=== PATIENT | male | born 1985 | race Caucasian/White ===

== ENCOUNTER → 2016-05-15 | Outpatient (CLI) | payer OTHER ==
--- NOTE | 2016-05-15 10:10 | REP ---
Chest x-ray: Two views. History: Cough. Comparison study September 30, 2007. Findings: The lungs are symmetrically aerated and clear. Heart is not enlarged. Pleural angles are sharp. Pulmonary vasculature is not increased. No significant bony abnormality is seen. Impression: No active disease. Unreviewed
== END ==
LOC: M LRY 09:43
PROVIDERS: ATTEND Nurse Practitioner Family
DX: R05 Cough (principal)

== ENCOUNTER → 2016-05-15 | Outpatient (REF) | payer OTHER | LOC: M SFHCLERA 09:28 | PROVIDERS: ATTEND Nurse Practitioner Family | DX: J02.9 Acute pharyngitis, unspecified (principal) ==

== ENCOUNTER → 2019-12-27 | Outpatient (CLI) | payer OTHER ==
--- NOTE | 2020-01-03 06:21 | SLEEPHOME ---
DATE: 12/27/2019 ORDERING PROVIDER: Sabrina Bush FINDINGS: Diagnostic home sleep testing was performed due to concern for obstructive sleep apnea syndrome. For testing, a nocturnal T3 respiratory monitoring device was used. Continuous record was made of pulse, oxygen saturation, air flow, chest abdominal strain, and body position. Nine hours and 59 minutes of data were reviewed. There were six hours and 27 minutes as time in bed. During interval of marked time in bed, there were 193 respiratory events identified of 10 seconds in duration or greater, for a respiratory event index of 29.9. The events were primarily obstructive; 42 mixed and central apneas were seen. Baseline pulse rate was 71 beats per minute. Pulse rate ranged from 26-193. Baseline saturation was 94%. Saturations fell as low as 70% and the oxygen desaturation index was 21.4. Testing was performed in both the supine and non-supine positions. IMPRESSION: Abnormal home sleep testing with repetitive respiratory events and oxygen desaturations to 70% with respiratory event index of 29.9, is consistent with obstructive sleep apnea syndrome. RECOMMENDATION: The patient should be encouraged to undergo formal sleep evaluation. [facility]
== END ==
LOC: M SLEEP HO 11:44
PROVIDERS: ATTEND Physician Assistant
DX: G47.39 Other sleep apnea (principal)

== ENCOUNTER → 2024-04-22 | Outpatient (REF) | payer OTHER | LOC: EEVIPCON 14:48 → M LAB REF 14:48 | PROVIDERS: ATTEND Surgery | DX: L02.411 Cutaneous abscess of right axilla (principal) ==

== ENCOUNTER → 2025-01-11 | Outpatient (REF) | payer OTHER | LOC: M LAB REF 17:13 | PROVIDERS: ATTEND Physician Assistant | DX: J02.9 Acute pharyngitis, unspecified (principal) ==